=== PATIENT | female | born 1950 | race Caucasian/White ===

== ENCOUNTER 2018-11-18 20:02 | Emergency (ER) | payer MEDICARE, OTHER ==
[~2018-11-18] VITALS: Ht 167.6 cm; Wt 81.7 kg
[2018-11-18] MEDS ORDERED: LUMIGAN2.5 M1 OP (20:25)
[2018-11-18] MEDS ORDERED: NORCO 5-325 TA1 EACH PO (21:43)
[2018-11-18] MEDS ORDERED: IBUPROFEN 600600 M1 PO (21:43)
[2018-11-18 21:55] VITALS: BP 139/58
== END 2018-11-18 21:55 | disposition home or self-care (01) ==
LOC: M.ERS 20:02
DX: S63.592A Other specified sprain of left wrist, initial encounter (principal); W23.1XXA Caught, crushed, jammed, or pinched between stationary objects, initial encounter; Y92.89 Other specified places as the place of occurrence of the external cause; Y93.89 Activity, other specified; Y99.8 Other external cause status